=== PATIENT | female | born 1980 | race Caucasian/White ===

== ENCOUNTER 2024-07-27 17:15 | Emergency (ER) | payer OTHER, SELFPAY ==
--- NOTE | 2024-07-27 17:18 | ED.EYEPROB ---
HPI - Eye Problem General Chief complaint: Eye Problems Stated complaint: LT Eye Pain Time Seen by Provider: 07/27/24 17:30 Source: patient and RN notes reviewed Mode of arrival: ambulatory Limitations: no limitations History of Present Illness HPI Narrative: 44-year-old female presents with concern for left eye pain. Reports about 40 minutes prior to arrival she was cutting limbs in her yd when she got scratched in the left eye with a tree branch. She reports intermittent watery drainage and occasional blurry vision. MD chief complaint: eye pain Related Data Home Medications ?Medication ?Instructions ?Recorded ?Confirmed ?Last Taken ?Type atenolol 50 mg tablet 50 mg PO DAILY 01/22/20 Unknown History clonazepam 0.5 mg tablet 0.5 mg PO DAILY 01/22/20 Unknown History furosemide 40 mg tablet 40 mg PO QAM 01/22/20 Unknown History lamotrigine 300 mg tablet,extended 300 mg PO DAILY 01/22/20 Unknown History release 24 hr valsartan 40 mg tablet 40 mg PO BID 01/22/20 Unknown History divalproex 500 mg tablet,extended mg PO 07/27/24 Unknown History release 24 hr lamotrigine 100 mg tablet mg 07/27/24 Unknown History Allergies Allergy/AdvReac Type Severity Reaction Status Date / Time codeine AdvReac Intermediate Gastrointestinal Verified 07/27/24 17:18 Upset acetaminophen (From Percocet) AdvReac Mild Itching Verified 07/27/24 17:18 oxycodone (From Percocet) AdvReac Mild Itching Verified 07/27/24 17:18 Review of Systems Review of Systems: CONSTITUTIONAL: Denies malaise, chills, sweats, or fever. EYES: Reports left eye watery drainage, pain, occasional blurry vision ENT: Denies rhinorrhea, congestion, sinus pain, otalgia or sore throat. SKIN: Denies rash or itching. NEUROLOGIC: Denies numbness, weakness, or headache. PSYCHIATRIC: Denies anxiety or depression. All systems reviewed & are unremarkable except as noted in HPI and below PMFSH Social History Social History (Updated 01/22/20 @ 15:30 by Erin Izquierdo [facility]) Smoking status: Never smoker Second hand tobacco smoke exposure: No Alcohol intake: current Substance use: never Substance use type: does not use Comments At time of signature, agree with nursing past medical, surgical, social and family history. There is no relevant family history pertinent to the presenting complaint Exam Narrative: GENERAL: Well-appearing, well-nourished, and in no acute distress. HEAD: Normocephalic, atraumatic. EYES: PERRLA, sclera clear, and EOMI. No nystagmus. Upper and lower eyelid unremarkable, no periorbital edema noted. Small Subconjunctival hemorrhage noted to the inner left eye. Corneal abrasion noted upon Wood's lamp exam, see note ENT: Nares clear, turbinates pink, no rhinorrhea or epistaxis. Mucous membranes moist. TM pearly shaver with sharp light reflex bilaterally; no tragal tenderness. NECK: Supple. CHEST: No respiratory distress. Speaks in full sentences. HEART: Regular rate and rhythm. SKIN: Warm, dry, no visible rash. NEURO: Alert and oriented x3. PSYCH: Normal mood and affect Course Course Emergency Course: Patient is aware of diagnosis, understands and agrees to treatment plan. Anticipatory guidance given. Patient agrees to follow-up as directed and is aware of reasons to seek care at the emergency department. Portions of this record may have been created with voice recognition software Level of Care: Express Care Visit Vital Signs Vital signs: Reviewed. Procedures Other Procedure Procedure 1: Other Procedure: Tetracaine 1 gtt instilled in left eye, fluorescein stain applied. Corneal abrasion noted upon tinoco lamp exam at approximately 9 o'clock in relation to the pupil. Eye washed with NS 100 ml. No foreign bodies or Norm sign noted. MDM - Eye Problem MDM Narrative Medical decision making narrative: Consideration of the following conditions may be warranted for the presenting problem, they are not final diagnoses: Bacterial conjunctivitis, allergic conjunctivitis, viral conjunctivitis, foreign body, blepharitis, chalazion, hordeolum, corneal abrasion, preseptal cellulitis, orbital cellulitis. No evidence of proptosis, ophthalmoplegia, vision loss, pain with eye movement. Exam findings show no acute concerns or changes; patient is non-toxic appearing and is in no distress. Patient is appropriate for outpatient treatment and follow-up. Critical Care Time Critical Care Time Critical Care Time: No Discharge Plan Discharge Clinical Impression: Corneal abrasion, Subconjunctival hemorrhage Patient Disposition: Home Condition: Stable Instructions: Corneal Abrasion (ED) Additional Instructions: Corneal abrasions will heal in 1-2 days. Keep your eye shut and wear sunglasses or stay in low light to avoid light sensitivity. Do not touch or rub your eye or use a fabric patch You may take Tylenol or ibuprofen for pain Follow-up with PCP or director business development if condition is not improving in 2-3days. Patient Language: Croatian Prescriptions: New polymyxin B sulf-trimethoprim 10,000 unit- 1 mg/mL drops 1 drp LEFT EYE Q3H 7 Days Qty: 10 0RF Rx Instructions: while awake; do not exceed 6 doses in 24 hours No Action divalproex 500 mg tablet extended release 24 hr PO lamotrigine 100 mg tablet clonazepam 0.5 mg tablet 0.5 mg PO DAILY lamotrigine 300 mg tablet extended release 24hr 300 mg PO DAILY valsartan 40 mg tablet 40 mg PO BID furosemide 40 mg tablet 40 mg PO QAM atenolol 50 mg tablet 50 mg PO DAILY fluticasone propionate 50 mcg/actuation spray,suspension 1 spray intranasal BID Qty: 15.8 3RF Rx Instructions: administer into each nostril azelastine 137 mcg (0.1 %) aerosol,spray 1 spray intranasal Q12H Qty: 30 3RF Rx Instructions: administer into each nostril lidocaine HCl 2 % solution 1 applic mucous membrane BID Qty: 100 3RF omeprazole 40 mg capsule,delayed release(DR/EC) See Rx Instructions .ROUTE .COMPLEX Qty: 30 0RF Dose Instruction: TAKE 1 CAPSULE BY MOUTH DAILY Rx Instructions: TAKE 1 CAPSULE BY MOUTH DAILY Follow-up/Referrals: UNKNOWN,DOCTOR [Non-Staff] - Time of Disposition: 17:40
--- OUTSIDE RECORDS SUMMARY | 2024-07-27 17:18 | XMS_ITS | Clinical Summary ---
Author Organization [facility] Address [address] [place] [address] Phone Care Team Providers Care Labview Programmer Name Role Phone Unavailable Primary Care Provider Unavailabl e Allergies Active Allergy Reactions Criticality Noted Date Comments Codeine Nausea and Vomiting Low 06/23/2011 Labetalol Hives High 06/23/2011 Oxycodone-Acetaminophen Hives High 06/23/2011 Medications atenolol (TENORMIN) 50 mg Oral tablet Take 50 mg by mouth 2 times daily. Active ferrous sulfate SR (SLOW RELEASE IRON) 160 mg (50 mg iron) Oral TbSR Take 160 mg by mouth 2 times daily. Active vit-iron fumarate-fa (CHARISSE ) 28-0.8 mg Oral Tab Take 1 Tab by mouth daily. Active folic acid (FOLVITE) 1 mg Oral tablet Take 1 mg by mouth daily. Active docusate sodium (COLACE) 100 mg Oral capsule Take 1 Cap by mouth 2 times daily. 20 Cap 1 2 Active bisacodyl (DULCOLAX) 10 mg Rectal Supp Insert 1 Suppository by rectum 1 time daily as needed for Constipation. 12 Suppository 0 2 Active ibuprofen (MOTRIN) 600 mg Oral tablet Take 1 Tab by mouth every 6 hours as needed for Pain. 20 Tab 0 2 Active HYDROcodone-ac etaminophen (NORCO) 10-325 mg Oral Tab Take 1 Tab by mouth every 4 hours as needed for Pain, Moderate. 20 Tab 0 2 Active Active Problems Problem Noted Date Diagnosed Date 06/30, CHTN - atena lol 50 BID, lasix 40 QOD, diovan 160 mg 07/01/2011 CHTN, MVP,rt side pain at 37.6w 06/23/2011 Immunizations Immunization Administration Dates Next Due (ADACEL/BOOSTRIX)(10 YR UP) TDAP VACCINE, 0.5ML, IM 07/03/2011 Family History Medical History Relation Name Comments Hypertension Mother Relation Name Status Comments Father Alive Mother Alive Social History Tobacco Use Types Packs/Day Years Used Date Smoking Tobacco: Former Alcohol Use Standard Drinks/Week Comments No 0 (1 standard drink = 0.6 oz pur e alcohol) Comments Unknown Sex and Gender Information Value Date Recorded Sex Assigned at Not on file 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 Gender Identity Not on file Sexual Orientation Not on file Occupation Industry Job Start Date Job End Date Not on file Not on file Not on file Not on file Last Filed Vital Signs Vital Sign Reading Time Taken Comments Blood Pressure 120/80 07/03/2011 8:42 AM CDT Pulse 84 07/03/2011 8:42 AM CDT Temperature 36.8 C (98.2 F) 07/03/2011 8:42 AM CDT Respiratory Rate 18 07/03/2011 8:42 AM CDT Oxygen Saturation 98% 07/01/2011 10:30 AM CDT Inhaled Oxygen Concentration - - Weight 101.6 kg (224 lb) 07/01/2011 5:53 AM CDT Height 157.5 cm (5' 2) 07/01/2011 5:53 AM CDT Body Mass Index 40.97 07/01/2011 5:53 AM CDT Plan of Treatment Health Maintenance Due Date Last Done Comments HEPATITIS B VACCINES (1 of 3 - 19+ 3-dose series) 1997 HPV/Cotest (21-29) 07/20/1999 CERVICAL CANCER SCREENING 2008 HPV/Cotest (30-65) 2008 PAP SMEAR 2008 BREAST CANCER SCREENING 2018 DTAP/TDAP/TD VACCINES (2 - T d or Tdap) 07/02/2021 07/03/2011 COLORECTAL SCREENING 07/20/2023 Colorectal Cancer Screening 07/20/2023 FIT-DNA Q 3 years 07/20/2023 FIT/FOBT Q 1 year 07/20/2023 Flex Sig/CT Colonography Q 5 years 07/20/2023 INFLUENZA VACCINE (#1) 2023 HPV VACCINES Aged Out No longer eligi ble based on patient's age to complete this topic Insurance Advance Directives For more information, please contact: [phone] * Full Code (Latest Code Status on File) Date Activated Date Inactivated Comments 07/01/2011 11:05 AM 07/03/2011 3:44 PM * Full Code Date Activated Date Inactivated Comments 06/23/2011 8:07 PM 06/24/2011 1:20 AM
--- OUTSIDE RECORDS SUMMARY | 2024-07-27 17:18 | XMS_ITS | Clinical Summary ---
Author Organization [facility] Address [address] [place] [id number] Care Team Providers Care Fish Hatchery Inspector Name Role Phone Unavailable Primary Care Provider Unavailabl e Social History Tobacco Use Types Packs/Day Years Used Date Smoking Tobacco: Never Assessed Comments Unknown Sex and Gender Information Value Date Recorded Sex Assigned at Not on file Legal Sex Female 6:57 PM CDT Gender Identity Not on file Sexual Orientation Not on file Plan of Treatment Health Maintenance Due Date Last Done Comments Cervical Cancer Screening Pa p Smear (Age 30 to 64) Every 3 Years 1978 Colorectal Cancer Screening Colonoscopy (10 Years) 1978 Annual Physical 1981 Hepatitis C 1996 DTaP, Tdap and Td Vaccines ( 1 - Tdap) 1997 Hepatitis B Vaccines (1 of 3 - 19+ 3-dose series) 1997 Cervical Cancer Screening Pa p with HPV Testing (Age 30 to 64) Every 5 Years 2008 Cervical Cancer Screening with HPV 2008 Mammogram Screening 2018 COVID-19 Vaccine (2023-2 5 season) 2023 HPV Vaccines Aged Out No longer eligi ble based on patient's age to complete this topic Meningococcal B Vaccine Aged Out No l onger eligible based on patient's age to complete this topic Meningococcal Vaccine Aged Out No asa cornelius eligible based on patient's age to complete this topic Pneumococcal Vaccine: Pediat rics (0 to 5 Years) and At-Risk Patients (6 to 49 Years) Aged Out No longer eligible b ased on patient's age to complete this topic RSV Immunizations Under 20 Months Aged Out No longer eligible based on patient's age to complete this topic
--- OUTSIDE RECORDS SUMMARY | 2024-07-27 17:18 | XMS_ITS | Encounter Summary ---
Author Organization [facility] Address [address] [place] [address] Phone Care Team Providers Care Recreation Therapy Teacher Name Role Phone Murray Bradshaw MD Primary Care Provider [phone] Encounter Details Date Type Department Care Team (Late st Contact Info) Description 06/09/2024 Results Follow-Up [facility] [address] [place] [address] Murray Bradshaw MD [address] [place] [address] [address] [place], [place] [id number] Urinalysis reflex to microscopic and culture Urine, Lipid panel, Comprehensive metabolic panel, Additional followed-up results: 4 Social History Tobacco Use Types Packs/Day Years Used Date Smoking Tobacco: Never Smokeless Tobacco: Never Alcohol Use Standard Drinks/Week Comments Yes 0 (1 standard drink = 0.6 oz pur e alcohol) AUDIT-C Answer Date Recorded Q1: How often do you have a drink containing alc ohol? 2-4 times a month 06/08/2020 Q2: How many drinks containi ng alcohol do you have on a typical day when you are drinking? 1 or 2 06/08/2020 Q3: How often do you have si x or more drinks on one occasion? Less than monthly 06/08/2020 Personal Safety Answer Date Recorded Have you ever been in or are you currently in a harmful physical or emotional relationship or is someone making you feel afraid or unsafe? 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
--- OUTSIDE RECORDS SUMMARY | 2024-07-27 17:18 | XMS_ITS | Clinical Summary ---
Author Organization [facility] Address [address] [place] [address] Care Team Providers Care Bullet Maker Name Role Phone Murray Bradshaw MD Primary Care Provider [phone] Allergies Active Allergy Reactions Criticality Noted Date Comments Carbamazepine Itching,Swelling Medium 03/02/2016 Codeine Nausea & Vomiting Low 11/16/2011 Labetalol Rash,Urticaria,Hives Medium 01/18/2011 Lacosamide Other (See comments) Low 12/03/2017 MADE HER PASS OUT, STATES MADE HER OFF BALANCE AND VERY ILL Oxycodone-Acetaminophen Itching Medium 06/23/2011 Medications * This document contains information received from the source organization and may not represent a complete record from that organization. clonazePAM (KlonoPIN) 1 mg tabletIndications :seizures Take 0.5 mg by mouth nightly 016 Active lamoTRIgine XR (LaMICtal XR) 200 mg tablet extended release 24hr Take 0.5 tablets (100 mg total) by mouth daily 15 tablet Active Additional Information Patient taking differently: 200 mgoralNightly, 100mg in am and 200mg in pm, Indications: epilepsy, Informant: Self, Reported on 06/01/2020 meclizine (ANTIVERT) 25 mg tablet Take 1 tablet (25 mg total) by mouth every 6 (six) hours as needed for dizziness 20 tablet Active Nurtec ODT tablet,disintegra tingIndications:M igraine Place under the tongue as needed Active divalproex DR (DEPAKOTE) 500 mg EC tabletIndications :epilepsy Take 500 mg by mouth every morning Active lamoTRIgine XR (LaMICtal XR) 100 mg tablet extended release 24hrIndications:e pilepsy Take 100 mg by mouth every morning Active ondansetron ODT (ZOFRAN-ODT) 8 mg disintegrating tabletIndications :post-op 021 Active omeprazole (PriLOSEC) 40 mg capsuleIndication s:Stress Ulcer Prophylaxis Take 1 capsule (40 mg total) by mouth nightly 90 capsule 3 024 Active escitalopram (LEXAPRO) 10 mg tablet Take 1 tablet (10 mg total) by mouth daily 90 tablet 4 024 Active rimegepant (Nurtec ODT) tablet,disintegra ting Take 1 tablet (75 mg total) by mouth daily 24 tablet 024 Active valsartan (DIOVAN) 80 mg tabletIndications :Hypertension, essential TAKE 1 TABLET(80 MG) BY MOUTH DAILY 90 tablet 3 024 Active furosemide (LASIX) 40 mg tabletIndications :Essential hypertension Take 1 tablet (40 mg total) by mouth daily 90 tablet 1 025 Active ubrogepant (Ubrelvy) 100 mg tablet Take 1 tablet (100 mg total) by mouth once as needed for migraine May repeat dose once in 2 hours if no relief. Do not exceed 2 doses in 24 hours. 4 tablet 025 2025 Active Ubrelvy 50 mg tablet TAKE 1 TABLET BY MOUTH ONCE DAILY NEEDED FOR MIGRAINE 8 tablet 025 Active Wegovy 2.4 mg/0.75 mL auto-injector INJECT 2.4 MG SUBCUTANEOUSLY ONCE EVERY 7 DAYS. 4 mL 025 Active atenoloL (TENORMIN) 50 mg tabletIndications :Essential hypertension Take 1 tablet by mouth twice daily 180 tablet 1 025 Active atenoloL (TENORMIN) 50 mg tabletIndications :Essential hypertension TAKE 1 TABLET(50 MG) BY MOUTH TWICE DAILY 180 tablet 3 024 2024 Discontinued Wegovy 2.4 mg/0.75 mL auto-injector INJECT 2.4MG SUBCUTANEOUSLY ONCE EVERY 7 DAYS 4 mL 025 2024 Discontinued Active Problems Problem Noted Date Diagnosed Date Overweight (BMI 25.0-29.9) 05/24/2023 Paresthesias 05/04/2020 S/P JER (total abdominal hysterectomy) 8 Overview (06/14/2018): Had bilateral salpingectomy. 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 Rash 07/21/2013 Anemia 07/18/2011 Thyroid activity decreased 07/18/2011 Chronic diarrhea of unknown origin 07/18/2011 Urinary tract infection 07/18/2011 S/P section 07/01/2011 Elevated BP 06/23/2011 History of gastroesophageal reflux (GERD) 2010 History of partial seizures 12/14/2010 Overview (10/22/2017): Overview: Not sure, off medications for over one year MVP (mitral valve prolapse) 12/14/2010 Other pre-existing hypertension, antepartum 03/2010 Hypertension 05/04/2010 Epilepsy 05/04/2010 Encounters Date Type Department Care Team Description 06/09/2024 Results Follow-Up [address] [phone] Murray Bradshaw MD Urinalysis reflex to microscopic and culture Urine, Lipid panel, Comprehensive metabolic panel, Additional followed-up results: 4 06/09/[address] [phone] Jazmin Pritchett information strategist Results 06/05/[address] [phone] Murray Bradshaw MD Lab Results 05/12/2024 8:50 AM CDT Lab [facility] Medical Office Bld[address] [place] [id number] Routine general medical examination at a health care facility; Screening cholesterol level 05/09/[address] [phone] Murray Bradshaw MD Medication Clarification (ubelvy 100mg) 05/09/2024 Orders Only [address] [phone] ProviderMontse MD 05/08/2024 3:15 PM CDT Office Visit [address] [phone] Murray Bradshaw MD Routine general medical examination at a health care facility (Primary Dx); Screening cholesterol level from Last 3 Months Immunizations Immunization Administration Dates Next Due Influenza, Trivalent, Cell C ulture-based MDCK, Preservative Free, Antibiotic Free, Intramuscular 11/29/2023 Influenza, Unspecified 12/06/2019 Surgical History Surgery Date Site/Laterality Comments [place] TONSILLECTOMY PRIMARY/SECONDARY AGE 12/> 02/13/2000 - 02/11/2001 Tonsillectomy Over Age 12 - (Added by TW Conv) [place] DELIVERY ONLY 2006, 2011 Section - (Added by TW Conv) ANKLE SURGERY 02/13/2012 - 02/11/2013 Right Ankle Surgery - (Added by TW Conv) PARTIAL HYSTERECTOMY 02/12/2017 - 02/11/2018 DILATION AND CURETTAGE OF UTERUS 2006, 2011 Medical History Medical History Date Comments Hypertension Hypertension Hx Other Medical 2000 tonsillectomy Hx Other Medical 2006 Hx Other Medical 2 ankle surg Hx Other Medical D&C Personal history of other di seases of the circulatory system History of hypertension - (A dded by TW Conv) PONV (postoperative nausea and vomiting) pre medicated with no issues Seizure (HCC) last episode cecily emiliana 6 mos ago TIA (transient ischemic attack) with visual changes, at the time, reports, no residual effects Family History Medical History Relation Name Comments Prostate cancer Father Family histo ry of malignant neoplasm of prostate - (Added by TW Conv) Diabetes type II Mother Diabetes -T ype 2; Hypertension Mother Hypertension; / Family history of hypertension - (Added by TW Conv) Diabetes Other 1 Family history of Diabetes mellitus; Cancer Other 2 Family history of Cancer; Relation Name Status Comments Father Mother Other 1 Other 2 Social History Tobacco Use Types Packs/Day Years Used Date Smoking Tobacco: Never Smokeless Tobacco: Never Tobacco Cessation:Counseling Given: No Alcohol Use Standard Drinks/Week Comments Yes 0 [...] on file Legal Sex Female 11:32 PM [employer]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 Gender Identity Not on file Sexual Orientation Not on file Obstetrics History Last Filed Vital Signs Vital Sign Reading Time Taken Comments Blood Pressure 118/76 05/08/2024 3:25 PM CDT Pulse 84 05/08/2024 3:25 PM CDT Temperature 36.7 C (98.1 F) 05/08/2024 3:25 PM CDT Respiratory Rate 16 04/16/2023 4:08 PM 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 Oxygen Saturation 99% 05/08/2024 3:25 PM CDT Inhaled Oxygen Concentration - - Weight 51.1 kg (112 lb 11.2 oz) 05/08/2024 3:25 PM CDT Height 157.5 cm (5' 2) 05/08/2024 3:25 PM CDT Body Mass Index 20.61 05/08/2024 3:25 PM CDT Plan of Treatment Health Maintenance Due Date Last Done Comments Colon Cancer Screening-Colonoscopy 1978 Depression Screening 1978 Hepatitis C Screening 1978 Hepatitis B Screening 1996 DTaP/Tdap/Td Vaccine (2 - Td or Tdap) 07/02/2021 07/03/2011 Covid-19 Vaccine ( season) 2023 07/31/2020, 07/03/2020 Breast Cancer Screening-Mammogram 11/08/2024 11/09/2023, 07/31/2022, 07/31/2022, Additional history exists Regular Well Visit/Exam 18-64 05/08/2025 05/08/2024, 03/20/2023, 02/15/2022 Influenza Vaccine Completed 11/29/2023, , 12/06/2017 HPV Vaccines Aged Out No longer eligi ble based on patient's age to complete this topic Pneumococcal vaccine <65 Aged Out No longer eligible based on patient's age to complete this topic Procedures Procedure Name Priority Date/Time Associated Diagnosis Comments EGFR Routine 05/12/2024 9:05 AM CDT Routine general medical examination at a health care facility Screening cholesterol level DIFFERENTIAL AUTO Routine 05/12/2024 9:0 5 AM CDT Routine general medical examination at a health care facility Screening cholesterol level VITAMIN D 25 HYDROXY Routine 05/12/2024 9:05 AM CDT Routine general medical examination at a health care facility Screening cholesterol level CBC WITH AUTO DIFFERENTIAL Routine 05/12/2024 9:05 AM CDT Routine general medical examination at a health care facility Screening cholesterol level COMPREHENSIVE METABOLIC PANEL Routine 05/12/2024 9:05 AM CDT Routine general medical examination at a health care facility Screening cholesterol level LIPID PANEL Routine 05/12/2024 9:05 AM CDT Routine general medical examination at a health care facility Screening cholesterol level URINALYSIS AND REFLEX TO MICROSCOPIC AND CULTURE Routine 05/12/2024 9:05 AM CDT Routine general medical examination at a health care facility Screening cholesterol level ECG 12-LEAD Routine 05/09/2024 3:02 PM CDT DIAGNOSTIC MAMMOGRAM BILATERAL W TAMARA Schedule Routine, Read Routine (OP Routine) 11/09/2023 4:12 PM CDT Abnormal mammogram of left breast Screening mammogram for breast cancer from Last 3 Months or Most Recently Relevant to Health Maintenance Results * eGFR (05/12/2024 9:05 AM CDT) Pathologist [facility] eGFR 89 >=60 mL/min/1. 73 m2 Comment: Interpretive Data Reference Interval Normal >/= 90 mL/min/1.73m2 Mildly decreased* 60 - 89 mL/min/1.73m2 Mildly to moderately decreased 45 - 59 mL/min/1.73m2 Moderately to severely decreased 30 - 44 mL/min/1.73m2 Severely decreased 15 - 29 mL/min/1.73m2 Kidney Failure < 15 mL/min/1.73m2 *Relative to young adult level Estimated glomerular filtration rate is determined by the 2020 CKD-EPI equation recommended by the National Kidney Foundation (A Unifying Approach to GFR Estimation: Recommendations of the NKF-ASK Task Force on Reassessing the Inclusion of Race in Diagnosing Kidney Disease, JASN 2020). The CKD-EPI equation should not be used for patients with unstable renal function and has not been validated in children and those over 70. Current interpretive data was last reviewed 2020. Blood 05/12/2024 9:0 5 AM CDT 05/12/2024 12:46 PM CDT Murray Bradshaw MD LAB BLOOD ORDERABLES Final R esult [facility] [address] [facility] Department [place] [address] * Differential, auto (05/12/2024 9:05 AM CDT) Pathologist [facility] Neutrophil abs 2.7 1.5 - 6.5 K/cumm Imm gran abs 0.0 0.0 - 0.1 K/cumm [facility] Lymphocyte abs 2.5 0.8 - 3.3 K/cumm [facility] Monocyte abs 0.6 0.2 - 0.8 K/cumm [facility] Eosinophil abs 0.3 0.0 - 0.5 K/cumm [facility] Basophil abs 0.0 0.0 - 0.1 K/cumm [facility] Neutrophil pct 44.2 % [facility] Comment: Interpretive Data Percent cell count reference ranges are not reported, since discordance with absolute values may lead to misinterpretation of CBC data. Current Interpretive Data was last revised on 2017. Imm gran pct 0.2 % [facility] Comment: Interpretive Data Percent cell count reference ranges are not reported, since discordance with absolute values may lead to misinterpretation of CBC data. Current Interpretive Data was last revised on 2017. Lymphocyte pct 40.8 % [facility] Comment: Interpretive Data Percent cell count reference ranges are not reported, since discordance with absolute values may lead to misinterpretation of CBC data. Current Interpretive Data was last revised on 2017. Monocyte pct 9.5 % [facility] Comment: Interpretive Data Percent cell count reference ranges are not reported, since discordance with absolute values may lead to misinterpretation of CBC data. Current Interpretive Data was last revised on 2017. Eosinophil pct 4.6 % [facility] Comment: Interpretive Data Percent cell count reference ranges are not reported, since discordance with absolute values may lead to misinterpretation of CBC data. Current Interpretive Data was last revised on 2017. Basophil pct 0.7 % [facility] Comment: Interpretive Data Percent cell count reference ranges are not reported, since discordance with absolute values may lead to misinterpretation of CBC data. Current Interpretive Data was last revised on 2017. Blood 05/12/2024 9:05 AM CDT 05/12/2024 12:46 PM CDT Murray Bradshaw MD LAB BLOOD ORDERABLES Final R esult [facility] [address] [facility] Department [place] [address] * Urinalysis reflex to microscopic and culture Urine (05/12/2024 9:05 AM CDT) Color, ur Yellow Yellow Clarity, ur Clear Clear [facility] Specific gravity, ur 1.013 1.003 - 1.030 [facility] pH, urine 6.0 [facility] Comment: Interpretive Data U rine pH is affected by diet, medications, systemic acid-base disturbances, and renal tubular function. pH may affect urinary stone formation. For example, urine pH below 6.0 may help reduce the tendency for calcium phosphate stones and pH greater than 6.0 may reduce the tendency for uric acid stone formation. Source: [facility] Current Interpretive Data was last revised on 2017 Protein, ur ql Negative Negative [facility] Glucose, ur ql Negative Negative [facility] Ketones, ur Negative Negative [facility] Bilirubin, ur Negative Negative [facility] Blood, ur Negative Negative [facility] Urobilinogen, ur <2.0 <2.0 mg/dL [facility] Nitrite, ur Negative Negative [facility] Leukocyte esterase, ur Negative Negative [facility] UA reflex comment Reflex conditions for microscopic UA and culture not met. [facility] Urine 05/12/2024 9:05 AM CDT 05/12/2024 12:50 PM CDT us Murray Bradshaw MD LAB MICROBIOLOGY - GENERAL O RDERABLES Final Result [address] Department [place] [address] * (ABNORMAL) CBC with auto differential (05/12/2024 9:05 AM CDT) WBC 6.0 3.8 - 9.9 K/cumm Hgb 11.2(L) 11.9 - 15.5 g/dL [facility] Hct 35.0(L) 35.6 - 45.5 % [facility] Plt 224 150 - 400 K/cumm [facility] MPV 10.8 9.1 - 12.3 fL [facility] RBC 3.68(L) 3.90 - 5.20 M/cumm [facility] MCV 95.1 81.3 - 96.4 fL [facility] MCH 30.4 27.1 - 33.3 pg [facility] MCHC 32.0(L) 32.3 - 35.7 g/dL [facility] RDW CV 12.3 11.1 - 14.9 % [facility] RDW SD 43.6 35.7 - 48.1 fL [facility] NRBC abs 0.00 0.00 - 0.01 K/cumm [facility] Blood 05/12/2024 9:05 AM CDT 05/12/2024 12:46 PM CDT Murray Bradshaw MD LAB BLOOD ORDERABLES Final R esult Performing Organization Address [facility] Co de Phone Number [address] [place] [address] * Vitamin D 25 hydroxy (05/12/2024 9:05 AM CDT) Vitamin D 25-OH 34.0 30.0 - 80.0 ng/mL Blood 05/12/2024 9:05 AM CDT 05/12/2024 12:46 PM CDT Murray Bradshaw MD LAB BLOOD ORDERABLES Final R esult Performing Organization Address [facility] Co de Phone Number [address] [place] [address] * Lipid panel (05/12/2024 9:05 AM CDT) Cholesterol 156 30 - 199 mg/dL Comment: Interpretive Data Ages < or = 19 years Acceptable: <170 mg/dL Borderline high: 170-199 mg/dL High: >or= 200 mg/dL Ages > or = 20 years Desirable: <200 mg/dL Borderline high: 200-239 mg/dL High: >or= 240 mg/dL Literature References: 1. Expert Panel on Integrated Guidelines for Cardiovascular Health and Risk Reduction in Children and Adolescents. Pediatrics 2011;128:S213 2. NCEP Expert Panel. Circulation 2004;110:227 Current Interpretive Data was last revised on 2017. Triglycerides 72 <=149 mg/dL [facility] Comment: Interpretive Data Ages < or = 9 years Acceptable: <75 mg/dL Borderline high: 75-99 mg/dL High: >or= 100 mg/dL Ages 10 to 20 years Acceptable: <90 mg/dL Borderline high: 90-129 mg/dL High: >or= 130 mg/dL Ages > or = 20 years Desirable: <150 mg/dL Borderline high: 150-199 mg/dL High: 200-499 mg/dL Very high: >or= 499 mg/dL Literature References: 1. Expert Panel on Integrated Guidelines for Cardiovascular Health and Risk Reduction in Children and Adolescents. Pediatrics 2011;128:S213 2. NCEP Expert Panel. Circulation 2004;110:227 Current Interpretive Data was last revised on 2017. HDL 51 >=40 mg/dL [facility] Comment: Interpretive Data Ages < or = 19 years Acceptable: >45 mg/dL Borderline low: 40-45 mg/dL Low: <40 mg/dL Ages > or = 20 years Desirable: >or= 60 mg/dL Low: <40 mg/dL Literature References: 1. Expert Panel on Integrated Guidelines for Cardiovascular Health and Risk Reduction in Children and Adolescents. Pediatrics 2011;128:S213 2. NCEP Expert Panel. Circulation 2004;110:227 Current Interpretive Data was last revised on 2017. LDL, calculated 91 <=129 mg/dL [facility] Comment: Interpretive Data Ages < or = 19 years Acceptable: <110 mg/dL Borderline high: 110-129 mg/dL High: >or= 130 mg/dL Ages > or = 20 years Optimal: <100 mg/dL Near optimal: 100-129 mg/dL Borderline high: 130-159 mg/dL High: >160 mg/dL Calculated using the Erick LDL-C estimating equation. This equation was implemented on 2023. Prior to this date LDL-C was estimated using the Friedewald equation. Literature References: 1. Expert Panel on Integrated Guidelines for Cardiovascular Health and Risk Reduction in Children and Adolescents. Pediatrics 2011;128:S213 2. NCEP Expert Panel. Circulation 2004;110:227 3. Erick Encarnacion al. LUCY Cardiol. 2020 June 12;5(5):540-548. doi: 10.1001/jamacardio.2020.0013 Current Interpretive Data was last revised on 2023. Non-HDL Cholesterol 105 mg/dL [facility] Comment: Interpretive Data Ages < or = 19 years Acceptable: <120 mg/dL Borderline high: 120-144 mg/dL High: >145 mg/dL Ages > or = 20 years When triglycerides are >200 mg/dL, Non-HDL cholesterol is a secondary target of therapy with treatment goals that are 30 mg/dL greater than the LDL cholesterol target. Literature References: 1. Expert Panel on Integrated Guidelines for Cardiovascular Health and Risk Reduction in Children and Adolescents. Pediatrics 2011;128:S213 2. NCEP Expert Panel. Circulation 2004;110:227 Current Interpretive Data was last revised on 2017. Chol/HDL ratio 3 [facility] Blood 05/12/2024 9:05 AM CDT 05/12/2024 12:46 PM CDT Murray Bradshaw MD LAB BLOOD ORDERABLES Final R esult [facility] [address] [facility] Department [place] [address] * (ABNORMAL) Comprehensive metabolic panel (05/12/2024 9:05 AM CDT) Sodium 136 135 - 145 mmol/L Potassium, pl 4.2 3.3 - 4.9 mmol/L [facility] Chloride 100 97 - 110 mmol/L [facility] CO2 24 22 - 32 mmol/L [facility] Anion gap 12 2 - 15 mmol/L [facility] BUN 15 6 - 25 mg/dL [facility] Creatinine 0.83 0.60 - 1.10 mg/dL [facility] Glucose 90 70 - 199 mg/dL [facility] Comment: Interpretive Data Fasting glucose >/= 126 mg/dl is diagnostic for diabetes. Fasting is defined as no caloric intake for at least 8 hours. Fasting glucose between 100 mg/dl to 125 mg/dl is diagnostic of prediabetes. In a patient with classic symptoms of hyperglycemia or hyperglycemic crisis, a random glucose >/= 200 mg/dl is diagnostic for diabetes. In the absence of unequivocal hyperglycemia, results should be confirmed by repeat testing. The classification and Diagnosis of Diabetes Diabetes Care 2021; 46: S19-S40. Current interpretive data was last revised 2022. Calcium 9.2 8.5 - 10.3 mg/dL [facility] Bilirubin, total 0.2 0.1 - 1.2 mg/dL [facility] Protein, pl 6.8 6.5 - 8.5 g/dL [facility] Albumin 4.2 3.5 - 5.0 g/dL [facility] Alk phos 62 40 - 130 Units/L [facility] ALT 89(H) 7 - 45 Units/L [facility] AST 49(H) 10 - 45 Units/L [facility] Blood 05/12/2024 9:05 AM CDT 05/12/2024 12:46 PM CDT Murray Bradshaw MD LAB BLOOD ORDERABLES Final R esult [facility] [address] [facility] Department [place] [address] * ECG 12 lead (05/09/2024 3:02 PM CDT) Historical Provider ECG ORDERABLES Final Res ult * Diagnostic Mammogram Bilateral W Tamara (11/09/2023 4:12 PM CDT) Anatomical Region Laterality Modality Breast Bilateral Mammography 11/09/2023 4:28 PM CDT Impressions 11/09/2023 4:43 PM CDT 1. No mammographic evidence of malignancy in either breast. 2. The previous left breast asymmetry does not persist on today's exam, and is now considered benign. OVERALL FINAL ASSESSMENT: BI-RADS Category 1: Negative. RECOMMENDATION: Annual screening mammography is recommended. Dictated by: Samuel Olvera D.O. The radiology attending physician has personally reviewed this study, and had reviewed and/or edited this written report and agrees with it. Electronically signed by: Tram Kuhn M.D. Narrative 11/09/2023 4:43 PM CDT EXAMINATION: BILATERAL DIGITAL DIAGNOSTIC MAMMOGRAM INCLUDING CAD AND BILATERAL DIGITAL BREAST TOMOSYNTHESIS HISTORY: 43-year-old female presents for short interval follow-up mammogram of an asymmetry in the left breast. Initially the patient presented for breast pain in the left breast 6 months ago which she describes as intermittent and does not feel pain today. COMPARISON: Multiple prior studies, most recently 04/10/2023 and dating back to 09/26/2019. TECHNIQUE: Full field digital mammographic views of BOTH breasts were performed, including computer aided detection (CAD) and BILATERAL digital breast tomosynthesis (DBT). BREAST PARENCHYMAL COMPOSITION: There are scattered areas of fibroglandular density. MAMMOGRAM FINDINGS: Left: The previously described asymmetry in the central mid depth LEFT breast does not persist on today's evaluation and represents superimposed fibroglandular tissue. There is no new suspicious mass, calcification, or architectural distortion in the LEFT breast. Right: No suspicious mass, calcification or architectural distortion in the right breast. Procedure Note Tram Kuhn MD - 11/09/2023 EXAMINATION: BILATERAL DIGITAL DIAGNOSTIC MAMMOGRAM INCLUDING CAD AND BILATERAL DIGITAL BREAST TOMOSYNTHESIS HISTORY: 43-year-old female presents for short interval follow-up mammogram of an asymmetry in the left breast. Initially the patient presented for breast pain in the left breast 6 months ago which she describes as intermittent and does not feel pain today. COMPARISON: Multiple prior studies, most recently 04/10/2023 and dating back to 09/26/2019. TECHNIQUE: Full field digital mammographic views of BOTH breasts were performed, including computer aided detection (CAD) and BILATERAL digital breast tomosynthesis (DBT). BREAST PARENCHYMAL COMPOSITION: There are scattered areas of fibroglandular density. MAMMOGRAM FINDINGS: Left: The previously described asymmetry in the central mid depth LEFT breast does not persist on today's evaluation and represents superimposed fibroglandular tissue. There is no new suspicious mass, calcification, or architectural distortion in the LEFT breast. Right: No suspicious mass, calcification or architectural distortion in the right breast. IMPRESSION: 1. No mammographic evidence of malignancy in either breast. 2. The previous left breast asymmetry does not persist on today's exam, and is now considered benign. OVERALL FINAL ASSESSMENT: BI-RADS Category 1: Negative. RECOMMENDATION: Annual screening mammography is recommended. Dictated by: Samuel Olvera D.O. The radiology attending physician has personally reviewed this study, and had reviewed and/or edited this written report and agrees with it. Electronically signed by: Tram Kuhn M.D. Murray Bradshaw MD IMG MAMMO PROCEDURES Final R esult from Last 3 Months or Most Recently Relevant to Health Maintenance Insurance [facility] [employer] [employer]O Address: [place] [address] [facility] [employer]O Address: [place] [address] [facility] [employer] [employer]PPO Address: [address] [address] [place] [address] [facility] [facility] [employer]PPO Address: [facility] [address] [place] [address] Advance Directives For more information, please contact: [phone] * Full Code (Latest Code Status on File) Date Activated Date Inactivated Comments 05/05/2020 1:20 AM 05/06/2020 8:46 PM Care Teams Bullet Maker Relationship Specialty Start Date End Date Murray Bradshaw MD [facility] [address] [address] PCP - General 07/06/10
--- OUTSIDE RECORDS SUMMARY | 2024-07-27 17:18 | XMS_ITS | Encounter Summary ---
Author Organization [facility] Healthcare Address [address] [place] [address] Care Team Providers Care Repair Table Operator Name Role Phone Murray Bradshaw MD Primary Care Provider [phone] Encounter Details Date Type Department Care Team (Late st Contact Info) Description 04/12/2020 Telephone [facility] [address] [place] [address] Elise Lambert, RT Social History Tobacco Use Types Packs/Day Years Used Date Smoking Tobacco: Never Alcohol Use Standard Drinks/Week Comments Yes 0 (1 standard drink = 0.6 oz pur e alcohol) Comments No Sex and Gender Information Value Date Recorded Sex Assigned at Not on file Legal Sex Female 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 07/08/2021 07/08/2021 11/05/2021 3:05 AM C DT COVID: Suspected 12/29/2022 12/29/2022 12/29/2022 4:26 PM COMMERCIAL ARTIST LETTERING COVID: Suspected 04/12/2023 04/12/2023 04/12/2023 3:08 PM COMMERCIAL ARTIST LETTERING documented as of this encounter Care Teams Repair Table Operator Relationship Specialty Start Date End Date Murray Bradshaw MD [address] [facility] [address] Dejah BALDWIN [address] [place] [address] PCP - General 07/06/10 documented as of this encounter
--- OUTSIDE RECORDS SUMMARY | 2024-07-27 17:18 | XMS_ITS | Continuity of Care Document ---
Author Organization [facility] Address [address] [place] [address] [place] [address] Phone Care Team Providers Care Scoop Driver Name Role Phone Samuel OD, Keyshawn Unavailable Unavailable Procedures Procedure Date Eye Exam & Treatment Refraction Contact Lens Hydrophilic, Spherical [facility] Medical Eye Exam & Treatment Refraction CL Replacement - Vistakon Disp W/BW Soft [facility] Medical CL Replacement - Vistakon Disp W/BW Soft [facility] Eye Exam & Treatment Advance Directives Directive Yes / No Effective Date File Name No Information Encounters Encounter Description Practice Location Reason(s) For Visit Diagnoses Date Provider Providers Copied on Encounter [facility], [address] [place] [address] [address], [place], [place], [id number], [place] tel:[phone] [facility] No Information Oct- 1-201 0 Samuel OD Keyshawn. [address] [facility] [place] , [address], [place], [address], [place]. tel:[phone] [facility], [address] [place] [address] [address], [place], [place], [id number], [place] tel:[phone] SEC [facility] No Information 5-200 9 Samuel OD Keyshawn. [address] [facility] [address], [address], [place], [address], [place]. tel:[phone] [facility], [address] [place] [address] [address], [place], [place], [id number], tel:[phone] [facility] No Information 1-200 9 Samuel OD Keyshawn. [address] [place], [place] [address]ate Center , [address], [place], [place], [facility], . tel:[phone] [facility] Eye [facility], [address] [place] [address] [address], [place], [place], [address], tel:[phone] SEC [facility] No Information 7-200 9 Samuel OD Keyshawn. [facility], [address] [facility] , [address], [place], [place], [facility], [place]. tel:[phone] [facility] Eye [facility], [address] [place] [address] [address], [place], [place], [address], tel:[phone] [facility] [place] No Information 1-200 8 Samuel OD Keyshawn. [address] [place], [place] [address]ate Center , [address], [place], [place], [facility], . tel:[phone] [facility] Eye [facility], [address] [place] [address] [address], [place], [place], [address], tel:[phone] [facility] [place] No Information 0 8-200 8 Samuel OD Keyshawn. [address] [place], [place] [address]ate Center , [address], [place], [facility], . tel:[phone] Family History Family Member Type Diagnosis Age At Onset No Information Payers Payer name Insurance type Covered alliance party ID Authoriza tion(s) No Information Social History Type Description Quantity Date Captured Comments Sex Female Smoking Status No Information Chief Complaint And Reason For Visit No Information Reason For Referral Reason For Referral No Information History Of Present Illness Encounter Date Complaint History Of Prese nt Illness No Information Functional Status Date Functional Assessmen t No Information Instructions Date Instruction Additional Infor mation No Information Assessments Type Assessment Date No Information Patient Care Teams Name Effective Dates (start - stop) Status Members No Information
--- OUTSIDE RECORDS SUMMARY | 2024-07-27 17:18 | XMS_ITS | Referral Summary ---
Author Organization [facility] Address [address] [place] [address] Care Team Providers Care Freight Caller Name Role Phone Murray Bradshaw MD Primary Care Provider [phone] Encounters Date Type Department Care Team Description 06/09/2024 Results Follow-Up [address] [phone] Murray Bradshaw MD Urinalysis reflex to microscopic and culture Urine, Lipid panel, Comprehensive metabolic panel, Additional followed-up results: 4 06/09/[address] [phone] Jazmin Pritchett RN Lab Results 06/05/[address] [phone] Murray Bradshaw MD Lab Results 05/12/2024 8:50 AM CDT Lab [facility] Bld[facility] [address] OP Lab [address] [address] Routine general medical examination at a health care facility; Screening cholesterol level 05/09/[address] [phone] Murray Bradshaw MD Medication Clarification (ubelvy 100mg) 05/09/2024 Orders Only [address] [phone] ProviderMontse MD 05/08/2024 3:15 PM CDT Office Visit [address] [place] [address] Murray Bradshaw MD Routine general medical examination at a health care facility (Primary Dx); Screening cholesterol level from Last 3 Months Allergies Active Allergy Reactions Criticality Noted Date [...] mg total) by mouth daily 15 tablet 021 Active Additional Information Patient taking differently: 200 mgoralNightly, 100mg in am and 200mg in pm, Indications: epilepsy, Informant: Self, Reported on 06/01/2020 meclizine (ANTIVERT) 25 mg tablet Take 1 tablet (25 mg total) by mouth every 6 (six) hours as needed for dizziness 20 tablet 021 Active Nurtec ODT tablet,disintegra tingIndications:M igraine Place under the tongue as needed [address] (DEPAKOTE) 500 mg EC tabletIndications :epilepsy Take 500 mg by mouth every morning Active lamoTRIgine XR (LaMICtal XR) 100 mg tablet extended release 24hrIndications:e pilepsy Take 100 mg by mouth every morning 021 Active ondansetron ODT (ZOFRAN-ODT) 8 mg disintegrating [...] hypertension, antepartum 03/2010 Hypertension 05/04/2010 Epilepsy 05/04/2010 Immunizations Immunization Administration Dates Next Due Influenza, Trivalent, Cell C ulture-based MDCK, Preservative Free, Antibiotic Free, Intramuscular 11/29/2023 Influenza, Unspecified 12/06/2019 Social History Tobacco Use Types Packs/Day Years [...] on file 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 Gender Identity Not on file Sexual Orientation Not on file Last Filed Vital Signs Vital Sign Reading Time Taken Comments Blood Pressure 118/76 05/08/2024 3:25 PM CDT Pulse 84 05/08/2024 3:25 PM CDT Temperature 36.7 C (98.1 F) 05/08/2024 3:25 PM CDT Respiratory Rate 16 04/16/2023 4:08 PM DENSITOMETER READER Oxygen Saturation 99% 05/08/2024 3:25 PM CDT Inhaled Oxygen Concentration - - Weight 51.1 kg (112 lb 11.2 oz) 05/08/2024 3:25 PM CDT Height 157.5 cm (5' 2) 05/08/2024 3:25 PM CDT Body Mass Index 20.61 05/08/2024 3:25 PM CDT Plan of Treatment Not on file Procedures Procedure Name Priority Date/Time Associated Diagnosis [...] 3:02 PM CDT DIAGNOSTIC MAMMOGRAM BILATERAL W GRAY Schedule Routine, Read Routine (OP Routine) 11/09/2023 4:12 PM CDT Abnormal mammogram of left breast Screening mammogram for breast cancer from Last 3 Months or Most Recently Relevant to Health Maintenance Results * eGFR (05/12/2024 9:05 AM CDT) [facility] eGFR 89 >=60 mL/min/1. 73 [...] data was last reviewed 2020. Blood 05/12/2024 9:05 AM CDT 05/12/2024 12:46 PM CDT us Murray Bradshaw MD LAB BLOOD ORDERABLES Final R esult [facility] [address] [facility] Department [place] [address] * Differential, auto (05/12/2024 9:05 AM CDT) [facility] Neutrophil abs 2.7 1.5 - 6.5 K/cumm Imm gran abs 0.0 0.0 - 0.1 K/cumm [facility] Lymphocyte abs 2.5 0.8 - 3.3 K/cumm [facility] Monocyte abs 0.6 0.2 - 0.8 K/cumm [facility] Eosinophil abs 0.3 0.0 - 0.5 K/cumm [facility] Basophil abs 0.0 0.0 - 0.1 K/cumm [facility] Neutrophil pct 44.2 % [facility] Comment: Interpretive Data Percent cell count reference ranges are not reported, since discordance with absolute values may lead to misinterpretation of CBC data. Current Interpretive Data was last revised on 2017. Imm gran pct 0.2 % [facility] Comment: Interpretive Data Percent cell count reference ranges are not reported, since discordance with absolute values may lead to misinterpretation of CBC data. Current Interpretive Data was last revised on 2017. Lymphocyte pct 40.8 % [facility] Comment: Interpretive Data Percent cell count reference ranges are not reported, since discordance with absolute values may lead to misinterpretation of CBC data. Current Interpretive Data was last revised on 2017. Monocyte pct 9.5 % [facility] Comment: Interpretive Data Percent cell count reference ranges are not reported, since discordance with absolute values may lead to misinterpretation of CBC data. Current Interpretive Data was last revised on 2017. Eosinophil pct 4.6 % [facility] Comment: Interpretive Data Percent cell count reference ranges are not reported, since discordance with absolute values may lead to misinterpretation of CBC data. Current Interpretive Data was last revised on 2017. Basophil pct 0.7 % [facility] Comment: Interpretive Data Percent cell count reference ranges are not reported, since discordance with absolute values may lead to misinterpretation of CBC data. Current Interpretive Data was last revised on 2017. Blood 05/12/2024 9:05 AM CDT 05/12/2024 12:46 PM CDT us Murray Bradshaw MD LAB BLOOD ORDERABLES Final R esult [facility] [address] [facility] Department [place] [address] * Urinalysis reflex to microscopic and culture Urine (05/12/2024 9:05 AM CDT) Color, ur Yellow Yellow Clarity, ur Clear Clear [facility] Specific gravity, ur 1.013 1.003 - 1.030 [facility] pH, urine 6.0 [facility] Comment: Interpretive Data U rine pH is affected by diet, medications, systemic acid-base disturbances, and renal tubular function. pH may affect urinary stone formation. For example, urine pH below 6.0 may help reduce the tendency for calcium phosphate stones and pH greater than 6.0 may reduce the tendency for uric acid stone formation. Source: [facility] Current Interpretive Data was last revised on 2017 Protein, ur ql Negative Negative [facility] Glucose, ur ql Negative Negative [facility] Ketones, ur Negative Negative [facility] Bilirubin, ur Negative Negative [facility] Blood, ur Negative Negative [facility] Urobilinogen, ur <2.0 <2.0 mg/dL [facility] Nitrite, ur Negative Negative [facility] Leukocyte esterase, ur Negative Negative [facility] UA reflex comment Reflex conditions for microscopic UA and culture not met. [facility] Urine 05/12/2024 9:05 AM CDT 05/12/2024 12:50 PM CDT Murray Bradshaw MD LAB MICROBIOLOGY - GENERAL O RDERABLES Final Result Performing Organization Address City/State/[facility] [[email or web address]] Co de Phone Number [place] [phone] [facility] Department [place] [address] * (ABNORMAL) CBC with auto differential (05/12/2024 9:05 AM CDT) WBC 6.0 3.8 - 9.9 K/cumm Hgb 11.2(L) 11.9 - 15.5 g/dL [facility] Hct 35.0(L) 35.6 - 45.5 % [facility] Plt 224 150 - 400 K/cumm [facility] MPV 10.8 9.1 - 12.3 fL [facility] RBC 3.68(L) 3.90 - 5.20 M/cumm [facility] MCV 95.1 81.3 - 96.4 fL [facility] MCH 30.4 27.1 - 33.3 pg [facility] MCHC 32.0(L) 32.3 - 35.7 g/dL [facility] RDW CV 12.3 11.1 - 14.9 % [facility] RDW SD 43.6 35.7 - 48.1 fL [facility] NRBC abs 0.00 0.00 - 0.01 K/cumm [facility] Blood 05/12/2024 9:05 AM CDT 05/12/2024 12:46 PM CDT Murray Bradshaw MD LAB BLOOD ORDERABLES Final R esult Performing Organization Address City/[facility] [[email or web address]] Co de Phone Number [id number] [place] [address] * Vitamin D 25 hydroxy (05/12/2024 9:05 AM CDT) Vitamin D 25-OH 34.0 30.0 - 80.0 ng/mL Blood 05/12/2024 9:05 AM CDT 05/12/2024 12:46 PM CDT Murray Bradshaw MD LAB BLOOD ORDERABLES Final R esult Performing Organization Address [facility] de Phone Number [address] [address] * Lipid panel (05/12/2024 9:05 AM CDT) Pathologist [facility] Cholesterol 156 30 - 199 mg/dL Comment: [...] on 2017. Triglycerides 72 <=149 mg/dL [facility] Comment: Interpretive Data Ages < [...] 2017. LDL, calculated 91 <=129 mg/dL [facility] Comment: Interpretive Data Ages < [...] NCEP Expert Panel. Circulation 2004;110:227 3. Erick Raymundo. LUCY Cardiol. 2020 June 12;5(5):540-548. doi: 10.1001/[email or web address].2020.0013 Current Interpretive Data was last revised on 2023. Non-HDL Cholesterol 105 mg/dL [facility] Comment: Interpretive Data Ages < [...] last revised on 2017. Chol/HDL ratio 3 [facility] Blood 05/12/2024 9:05 AM CDT 05/12/2024 12:46 PM CDT Murray Bradshaw MD LAB BLOOD ORDERABLES Final R esult [facility] [address] [facility] Department [place] [address] * (ABNORMAL) Comprehensive metabolic panel (05/12/2024 9:05 AM CDT) Sodium 136 135 - 145 mmol/L Potassium, pl 4.2 3.3 - 4.9 mmol/L [facility] Chloride 100 97 - 110 mmol/L [facility] CO2 24 22 - 32 mmol/L [facility] Anion gap 12 2 - 15 mmol/L [facility] BUN 15 6 - 25 mg/dL [facility] Creatinine 0.83 0.60 - 1.10 mg/dL [facility] Glucose 90 70 - 199 mg/dL [facility] Comment: Interpretive Data Fasting glucose >/= [...] 2022. Calcium 9.2 8.5 - 10.3 mg/dL [facility] Bilirubin, total 0.2 0.1 - 1.2 mg/dL [facility] Protein, pl 6.8 6.5 - 8.5 g/dL [facility] Albumin 4.2 3.5 - 5.0 g/dL [facility] Alk phos 62 40 - 130 Units/L [facility] ALT 89(H) 7 - 45 Units/L [facility] AST 49(H) 10 - 45 Units/L [facility] Blood 05/12/2024 9:05 AM CDT 05/12/2024 12:46 PM CDT Murray Bradshaw MD LAB BLOOD ORDERABLES Final R esult [facility] [address] [facility] Department [place] [address] * ECG 12 lead (05/09/2024 3:02 PM CDT) Historical Provider ECG ORDERABLES Final Res ult * Diagnostic Mammogram Bilateral W Gray (11/09/2023 4:12 PM CDT) Anatomical Region Laterality [...] Most Recently Relevant to Health Maintenance Insurance [facility] [employer] [employer] HMO/PPO Address: [address] [place] [address] [facility] [facility] [employer] H[employer]/PPO Address: [place] [address] [facility] [employer] H[employer]/PPO Address: [address] [place] [address] [facility] [employer] H[employer]/PPO Address: [facility] [address] [place] [address] Advance Directives For more information, please contact: [phone] * Full Code (Latest Code Status on File) Date Activated Date Inactivated Comments 05/05/2020 1:20 AM 05/06/2020 8:46 PM Care Teams Freight Caller Relationship Specialty Start Date End Date Murray Bradshaw MD [facility] [address] [address] PCP - General 07/06/10
--- OUTSIDE RECORDS SUMMARY | 2024-07-27 17:18 | XMS_ITS | Continuity of Care Document ---
Author Organization [employer] Address [address] [place] [address] Phone Care Team Providers Care Upholstery Covers Inspector Name Role Phone Santosh Buckley MD Unavailable Unavailable Advance Directives Directive Yes / No Effective Date File Name No Information Encounters Encounter Description Practice Location Reason(s) For Visit Diagnoses Date Provider Providers Copied on Encounter [facility], [address], [place], [place], [address], tel:[phone] [facility] Flank pain Marcio Frost. [address], [facility] [address], [place], [address], [place]. tel:[phone] [facility], [address], [place], [place], [address], tel:[phone] [facility] Asymptomatic microscopic hematuriaRenal painRetention of urine Noguera Christine. [address], [facility] [address], [place], [place], [address] , [place]. tel: [phone] Family History Family Member Type Diagnosis Age At Onset No Information Payers Payer name Insurance type Covered libertarian ID Authoriza tion(s) No Information Social History Type Description Quantity Date Captured Comments Sex Female Smoking Status No Information Chief Complaint And Reason For Visit No Information Reason For Referral Reason For Referral No Information Plan Of Treatment Date Type Action Status Future Order: Radiology Order CT abdomen and pelvis without contrast (60256), Sent on: Sent History Of Present Illness Encounter Date Complaint History Of Prese nt Illness No Information Functional Status Date Functional Assessmen t No Information Instructions Date Instruction Additional Infor mation No Information Assessments Type Assessment Date No Information Patient Care Teams Name Effective Dates (start - stop) Status Members No Information
--- OUTSIDE RECORDS SUMMARY | 2024-07-27 17:18 | XMS_ITS | Clinical Summary ---
Author Organization [facility] Address [address] [place] [address] Care Team Providers Care Sewer Connector Name Role Phone Murray Bradshaw MD Primary Care Provider [phone] Source Comments [facility],non-owned Affiliates and Associated Physician Practices is amultiple site organization consisting of ambulatory clinics and hospital sitesin [place], [place], [place] and [place]. This disclosure is being madepursuant to the Care Everywhere program and may not contain all information available regarding this patient. Last updated 17.[facility] Allergies Active Allergy Reactions Criticality Noted Date Comments Carbamazepine Itching,Swelling 03/02/2016 Codeine Nausea and/or Vomiting 11/16/2011 Labetalol Rash,Urticaria Medium 01/18/2011 Vimpat Other 12/03/2017 MADE HER PASS OUT, STATES MADE HER OFF BALANCE AND VERY ILL Oxycodone Itching 01/12/2016 Oxycodone-Acetaminophen Itching 12/14/2010 Medications * Be aware that medications may not be up to date on this document. Alwaysverify current medications with the patient. atenolol (TENORMIN) 50 MG tablet Take 1 (one) tablet by mouth 2 times daily Active furosemide (LASIX) 40 MG tabletIndicatio ns:Edema Take 1 (one) tablet by mouth once daily Reasons: Edema Active clonazePAM (KLONOPIN) 1 MG tablet 0.5 MG AT HS 0 6 Active triamcinolone acetonide (KENALOG) 0.1 % cream APPLY TO THE AFFECTED AREA TWICE DAILY( USE WITH NYSTATIN) 15 g 6 Active Additional Information Patient not taking.Reported on 09/28/2022 nystatin (MYCOSTATIN) 668751 UNIT/GM cream APPLY TO THE AFFECTED AREA TWICE DAILY( USE WITH TRIAMCINOLONE) 15 g 6 Active Additional Information Patient not taking.Reported on 09/28/2022 valsartan (DIOVAN) 80 MG tablet TK 1 T PO QD 2 6 Active lamoTRIgine XR 24hr (LAMICTAL XR) 300 MG tablet 200 mg 200 MG IN THE AM AND 200 MG AROUND 1700 8 Active ibuprofen (MOTRIN) 600 MG tablet Take 1 tablet by mouth every 6 hours as needed for Pain [address] (Depakote) 500 MG tablet Take 1 (one) tablet by mouth 1 Active phentermine (Adipex-P) 37.5 MG tablet 37.5 mg po in Am and 1/2 of 37.5 mg afternoon 2 Active divalproex ER 24hr (Depakote ER) 500 MG tablet 3 Active lamoTRIgine XR 24hr (LaMICtal XR) 200 MG tablet Take 2 (two) tablets by mouth 2 times daily 3 Active zolpidem (Ambien) 10 MG tablet Take 1 (one) tablet by mouth at bedtime 3 Active modafinil (Provigil) 100 MG tablet Take 1 (one) tablet by mouth once daily 3 Active atenolol (Tenormin) 50 MG tablet Take 1 (one) tablet by mouth two times daily at 4am and 4pm 60 tablet 11 3 Active darifenacin CR 24hr (Enablex) 7.5 MG tabletIndicatio ns:Overactive Bladder,Urinary Urgency Take 1 (one) tablet by mouth once daily Reasons: Overactive Bladder, Urinary Urgency 90 tablet 3 3 Active fluconazole (Diflucan) 150 MG tabletIndicatio ns:Any vaginitis Take 1 (one) tablet by mouth every 3 days 2 tablet 3 Active Active Problems Problem Noted Date Diagnosed Date S/P JER (total abdominal hysterectomy) 10/23/201 8 Overview (01/17/2018): Had bilateral salpingectomy. Conservation of the ovaries Menorrhagia with irregular cycle 11/21/2017 S/P endometrial ablation 11/21/2017 Dysmenorrhea 11/21/2017 Intramural leiomyoma of uterus 11/21/2017 Other pre-existing hypertension, antepartum 03/2010 History of partial seizures 12/14/2010 Overview (12/14/2010): Not sure, off medications for over one year MVP (mitral valve prolapse) 12/14/2010 History of gastroesophageal reflux (GERD) 2010 Resolved Problems Problem Noted Date Diagnosed Date Resolved Date history of Hypothyroidism co mplicating 12/14/2010 11/16/2011 Overview (12/14/2010): Last Low free T4, normal TSH; normal off meds when not Hx of preeclampsia, prior pr egnancy, currently 12/14/2010 11/16/2011 Anemia of mother in , antepartum 12/14/2010 11/16/2011 Previous delivery, antepartum condition or complication 12/14/2010 11/16/2011 Immunizations Immunization Administration Dates Next Due INFLUENZA VACCINE, QUADR. (F LUZONE; FLULAVAL; FLUARIX; AFLURIA QUADRIVALENT; 6MO+), 0.5 ML (IIV4) 12/06/2017 Family History Medical History Relation Name Comments Cancer - Prostate Father Cancer - Lung Maternal Grandfather Cancer - Stomach Maternal Grandfather Hypertension Maternal Grandmother Hypercholesterolemia Mother Hypertension Mother Rashes/Skin Problems Mother Cancer - Lung Paternal Grandmother Endometriosis Sister Relation Name Status Comments Brother Alive Father Alive Maternal Grandfather Alive Maternal Grandmother Mother Alive Paternal Grandmother Sister Social History Tobacco Use Types Packs/Day Years Used Date Smoking Tobacco: Former Smokeless Tobacco: Never Tobacco Cessation:Counseling Given: Not Answered Alcohol Use Standard Drinks/Week Comments Yes 0 (1 standard drink = 0.6 oz pure alcohol) rarely when not ; not at all when Comments No Sex and Gender Information Value Date Recorded Sex Assigned at Not on file Legal Sex Female 6:04 AM RADIATION PROTECTION SPECIALIST Gender Identity Not on file Sexual Orientation Not on file Occupation Industry Job Start Date Job End Date [employer] (Dr. Anthony [employer]) Not on file Not on file Not on file Last Filed Vital Signs Vital Sign Reading Time Taken Comments Blood Pressure 121/76 09/28/2022 11:03 AM CDT Pulse 90 12/06/2017 7:20 AM CDT Temperature 36.6 C (97.8 F) 12/06/2017 7:20 AM CDT Respiratory Rate 18 12/06/2017 7:20 AM CDT Oxygen Saturation 97% 12/06/2017 7:20 AM CDT Inhaled Oxygen Concentration - - Weight 65.7 kg (144 lb 12.8 oz) 023 11:03 AM CDT Height 157.5 cm (5' 2) 09/28/2022 11:0 3 AM CDT Body Mass Index 26.48 09/28/2022 11:03 AM CDT Plan of Treatment Health Maintenance Due Date Last Done Comments COLOGUARD (AGES 45-75) - COLON CA SCREENING 1978 COLON MONITORING 1978 COLONOSCOPY - COLON CA SCREENING 1978 CT COLONOGRAPHY - COLON CA SCREENING 1978 Colorectal Cancer Screening 1978 FIT - COLON CA SCREENING 1978 FLEX SIG - COLON CA SCREENING 1978 HIV SCREENING 1993 HEPATITIS C SCREENING 07/14/1996 DTAP/TDAP/TD VACCINES (1 - Tdap) 1997 HEPATITIS B VACCINE (1 of 3 - 19+ 3-dose series) 1997 LIPID TESTING 01/29/2019 01/29/2014 SCREENING FOR DIABETES 11/14/2021 8, 01/29/2014, 01/29/2014, Additional history exists PAP with HPV 10/19/2022 10/19/2017, 12/04/2014 COVID-19 VACCINE ( season) 2023 07/31/2020, 07/03/2020 DEPRESSION SCREENING 02/13/2024 MAMMOGRAM 07/31/2024 07/31/2022, 07/0 10/2021, 09/26/2019, Additional history exists INFLUENZA VACCINE (Season Ended) 2024 12/06/2019, 12/06/2017 ZOSTER VACCINE (1 of 2) 2028 HIB VACCINE Aged Out No longer eligi ble based on patient's age to complete this topic HPV VACCINE Aged Out No longer eligi ble based on patient's age to complete this topic MENINGOCOCCAL (Group B) VACCINE SHARED DECISION-MAKING Aged Out No longer eligible based on patient's age to complete this topic MENINGOCOCCAL GROUPS A/C/Y/W VACCINE Aged Out No longer eligible based on patient's age to complete this topic PNEUMOCOCCAL VACCINE Aged Out No long er eligible based on patient's age to complete this topic Procedures Procedure Name Priority Date/Time Associated Diagnosis Comments MAMMO BILAT DIAGNOSTIC W TAMARA Routine 07/31/2022 10:07 AM CDT Breast pain, left BASIC METABOLIC PANEL (CALCIUM TOTAL) STAT 12/04/2017 8:25 AM CDT Menorrhagia with irregular cycle PAP IG LB +HPV APTIMA REFLEX 16,18/45 Routine 10/19/2017 3:45 PM CDT Well woman exam Screening for human papillomavirus LIPID PROFILE Routine 01/29/2014 9:30 AM RADIATION PROTECTION SPECIALIST History of partial seizures from Last 3 Months or Most Recently Relevant to Health Maintenance Results * MAMMO BILAT DIAGNOSTIC W TAMARA (07/31/2022 10:07 AM CDT) Anatomical Region Laterality Modality Breast Bilateral Mammography 07/31/2022 10:3 6 AM CDT Impressions 07/31/2022 10:47 AM CDT : 1. There is no suspicious finding in either breast. There are stable benign post biopsy findings in the left breast. 2. Annual screening mammography is recommended in one year. 3. The exam results and management recommendations were discussed with the patient by Dr. Hanna at the time of study completion. OVERALL FINAL ASSESSMENT: BI-RADS Category 2: Benign. > Interpreting Provider: Jen Hanna MD on 07/31/2022 10:47 AM Narrative 07/31/2022 10:47 AM CDT EXAMINATION: BILATERAL DIGITAL DIAGNOSTIC MAMMOGRAM AND BILATERAL BREAST TOMOSYNTHESIS HISTORY: 42-year-old asymptomatic woman who underwent left breast stereotactic core needle biopsy on 09/14/2021 with a benign concordant result. Surveillance was recommended. The patient is currently due for bilateral annual imaging. COMPARISON: 03/20/2022, 09/14/2021, 09/02/2021, 08/20/2021, 09/26/2019, 10/24/2017 TECHNIQUE: BILATERAL full field digital breast tomosynthesis examination was performed with synthetic 2D images and computer aided detection (CAD). 7 projections total. BREAST PARENCHYMAL COMPOSITION: There are scattered areas of fibroglandular density. MAMMOGRAM FINDINGS: There is no suspicious finding in either breast. There is a stable focal asymmetry in the LEFT breast upper outer quadrant. A biopsy clip is present within the asymmetry, consistent with prior stereotactic/tomosynthesis guided core needle biopsy. The asymmetry appears less conspicuous in effacement on orthogonal spot compression views. There are no suspicious microcalcifications. There is no architectural distortion. Overall, there has been no significant interval change. us Rama Gant DO MAMMO ORDERABLES Final Result * (ABNORMAL) BASIC METABOLIC PANEL (CALCIUM TOTAL) (12/04/2017 8:25 AM CDT) Glucose 84 74 - 106 mg/dL 12/04/2017 8:46 AM CDT [facility] Sodium 136 136 - 145 mmol/L 12/04/2017 8:46 AM CDT [facility] Potassium 3.1(L) 3.5 - 5.1 mmol/L 12/04/2017 8:46 AM CDT [facility] Chloride 100 98 - 107 mmol/L 12/04/2017 8:46 AM CDT [facility] CO2 32(H) 22 - 31 mmol/L 12/04/2017 8:46 AM CDT [facility] Calcium 8.4(L) 8.5 - 10.1 mg/dL 12/04/2017 8:46 AM CDT [facility] Anion Gap 4(L) 8 - 16 mmol/L 12/04/2017 8:46 AM CDT [facility] BUN 8 7 - 21 mg/dL 12/04/2017 8:46 AM CDT [facility] Creatinine 0.89 0.50 - 1.30 mg/dL 12/04/2017 8:46 AM CDT [facility] eGFR by MDRD >60 >60 mL/min/1.7 3m2 12/04/2017 8:46 AM CDT [facility] eGFR by MDRD >60 >60 mL/min/1.7 3m2 12/04/2017 8:46 AM CDT [facility] Blood BLOOD SPECIMEN / Unknown Venipuncture / Unknown 12/04/2017 8:25 AM CDT 12/04/2017 8:28 AM CDT us Ashleigh Burdick DO LAB - CHEMISTRY ORDERABLES Final Result [facility] [address] [place] [address] * PAP IG LB +HPV APTIMA REFLEX 16,18/45 (10/19/2017 3:45 PM CDT) Diagnosis [facility] ACCOUNT BILL Comment:NEGATIVE FOR INTRAEP ITHELIAL LESION AND MALIGNANCY. Specimen Adequacy [facility] ACCOUNT BILL Comment: Satisfactory for evaluation. Endocervical and/or squamous metaplastic cells (endocervical component) are present. Clinician Provided ICD10 [facility] ACCOUNT BILL Comment: Z01.419 Z11.51 N92.1 N60.11 N60.12 Performed by [facility] ACCOUNT BILL Comment:Genny Em, Drawing Supervisor (ASCP) Comment . [facility] ACCOUNT BILL Note [facility] ACCOUNT BILL Comment: The Pap smear is a screening test designed to aid in the detection of premalignant and malignant conditions of the uterine cervix. It is not a diagnostic procedure and should not be used as the sole means of detecting cervical cancer. Both false-positive and false-negative reports do occur. . IGLBP CPT Code Automation [facility] ACCOUNT BILL Comment: This liquid based ThinPrep(R) pap test was screened with the use of an image guided system. Human papillomavirus Aptima Negative Negative [facility] ACCOUNT BILL Comment: This test detects fourteen high-risk HPV types (16/18/31/33/35/39/45/ 51/52/56/58/59/66/68) without differentiation. PART OF UTERINE CERVIX / Unknown 10/19/2017 3:45 PM CDT 10/19/2017 Narrative [facility] ACCOUNT BILL - 10/24/2017 9:07 PM CDT Source.............Cervix;Endocervix LMP / Prev Treat...GHG=[id number];None No. of containers..01 ThinPrep Vial Resulting Agency Comment [facility] And[facility] [place] Toney [place] [id number] us Ashleigh Burdick DO LAB - PATHOLOGY/CYTOLOGY ORDERAB LES Final Result [facility] ACCOUNT BILL [address] [place] [address] * (ABNORMAL) LIPID PROFILE (01/29/2014 9:30 AM RADIATION PROTECTION SPECIALIST) Cholesterol 204(H) <200 mg/dL 01/29/2014 10:07 AM RADIATION PROTECTION SPECIALIST [facility] Triglycerides 79 <150 mg/dL 01/29/2014 10:07 AM [facility] HDL Cholesterol 70 >40 mg/dL 01/29/2014 10:07 AM RADIATION PROTECTION SPECIALIST [facility] LDL Calculated 118 <130 mg/dL 01/29/2014 10:07 AM RADIATION PROTECTION SPECIALIST [facility] VLDL Calculated 16 <=30 mg/dL 01/29/2014 10:07 AM [facility] Chol HDL Ratio 2.9 <4.5 01/29/2014 10:07 AM [facility] Blood BLOOD SPECIMEN / Unknown Lab Venipuncture / Unknown 01/29/2014 9:30 AM RADIATION PROTECTION SPECIALIST 01/29/2014 9:36 AM RADIATION PROTECTION SPECIALIST us Duran Rosenbaum MD LAB - CHEMISTRY ORDERABLES Fi nal Result Performing Organization Address City/[facility] Co de Phone Number [facility] [address] [place] [phone] from Last 3 Months or Most Recently Relevant to Health Maintenance Insurance [facility] Advance Directives * Full Code (Latest Code Status on File) Date Activated Date Inactivated Comments 12/04/2017 1:52 PM 12/06/2017 10:38 AM * Full Code Date Activated Date Inactivated Comments 12/04/2017 1:52 PM 12/04/2017 1:52 PM Care Teams Sewer Connector Relationship Specialty Start Date End Date Murray Bradshaw MD [address] [place] [address] DR Pond [address] [address] PCP - General 08/08/10
--- OUTSIDE RECORDS SUMMARY | 2024-07-27 17:18 | XMS_ITS | Encounter Summary ---
Author Organization [facility] Address [address] [place] [address] Care Team Providers Care Extractor Plant Operator Name Role Phone Murray Bradshaw MD Primary Care Provider [phone] Reason for Visit * Diagnostic Imaging (Routine) - Closed Specialty Diagnoses / Procedures Referred By Emmy t Referred To Contact Procedures Breast Imaging Screening Outside Reference Transcribed Order, Provider Referral ID Status Reason Start Date Expiration Date Visits Re quested Visits Authorized [id number] Closed 04/10/2023 05/09/2024 1 1 Encounter Details Date Type Department Care Team (Late st Contact Info) Description 09/26/2019 Hospital Encounter [facility] [address] [place] [id number] Social History Tobacco Use Types Packs/Day Years [...] on file Legal Sex Female 11:32 PM ROLL BUILDER Gender Identity Not on file Sexual Orientation Not on file documented as of this encounter Functional Status documented as of this encounter Plan of Treatment Not on file documented as of this encounter Procedures Procedure Name Priority Date/Time Associated Diagnosis Comments BREAST IMAGING MG SCREENING OUTSIDE REFERENCE Routine 09/26/2019 12:00 AM CDT documented in this encounter Results * Breast Imaging Screening Outside Reference (09/26/2019 12:00 AM CDT) Impressions [facility] - 04/10/2023 9:52 AM ROLL BUILDER These images are for Reference purposes only and have not been reviewed by [facility]. There will be no report generated by a [facility] Radiologist. Narrative [facility] - 04/10/2023 9:52 AM ROLL BUILDER EXAMINATION: Images For Reference Purposes Only us Provider Transcribed Order IMG MAMMO PROCEDURES Final Result [facility] documented in this encounter Visit Diagnoses Not on filedocumented in this encounter Additional Health Concerns Infection Onset Date Last Indicated Resolved Time COVID: Suspected 12/12/2019 12/12/2019 12/13/2019 7:55 AM CDT Respiratory Infection (CHRISTELLE), contact + droplet Comment:Automatically added due to negative COVID-19 result. 12/13/2019 12/13/2019 12/27/2019 3:0 5 AM ROLL BUILDER COVID: Suspected 06/28/2021 06/28/2021 06/28/2021 5:47 PM CDT COVID19 06/28/2021 06/28/2021 07/08/2021 3:05 AM CDT COVID: Recovered Comment:Added based on recent COVID infection. 07/08/2021 07/08/2021 11/05/2021 3:05 AM C DT COVID: Suspected 12/29/2022 12/29/2022 12/29/2022 4:26 PM ROLL BUILDER COVID: Suspected 04/12/2023 04/12/2023 04/12/2023 3:08 PM ROLL BUILDER documented as of this encounter Care Teams Extractor Plant Operator Relationship Specialty Start Date End Date Murray Bradshaw MD [address] [place] [address] DR [address] [address] PCP - General 07/06/10 documented as of this encounter
--- OUTSIDE RECORDS SUMMARY | 2024-07-27 17:20 | XMS_ITS | Continuity of Care Document ---
Author Organization [facility] Address [address] [place] [address] [place] [address] Phone Care Team Providers Care Receiving Inspector Name Role Phone Samuel OD, Keyshawn Unavailable Unavailable Procedures Procedure Date Eye Exam & Treatment Refraction Contact Lens Hydrophilic, Spherical [facility] Exam & Treatment Refraction CL Replacement - Vist[place] Disp W/BW Soft [facility] CL Replacement - Vistakon Disp W/BW Soft [facility] Eye Exam & Treatment Advance Directives Directive Yes / No Effective Date File Name No Information Encounters Encounter Description Practice Location Reason(s) For Visit Diagnoses Date Provider Providers Copied on Encounter [facility], [address] [place] [address] [address], [place], [place], [id number], [place] tel:[phone] [facility] No Information Oct- 1-201 0 Samuel OD Keyshawn. [address] [facility] [place] , [address], [place], [address], [place]. tel:[phone] [facility], [address] [place] [address] [address], [place], [place], [id number], [place] tel:[phone] [facility] No Information 5-200 9 Samuel OD Keyshawn. [address] [facility] [address], [address], [place], [address], [place]. tel:[phone] [facility], [address] [place] [address] [address], [place], [place], [id number], tel:[phone] [facility] [place] No Information 1-200 9 Samuel OD Keyshawn. [address] [place], [place] [address] , [address], [place], [place], [facility], . tel:[phone] [facility], [address] [place] [address] [address], [place], [place], [id number], tel:[phone] [facility] No Information 7-200 9 Samuel OD Keyshawn. [facility] , [address], [place], [place], [facility], [place]. tel:[phone] [facility], [address] [place] [address] [address], [place], [place], [id number], tel:[phone] [facility] [place] No Information 1-200 8 Samuel OD Keyshawn. [address] [place], [place] [address] , [address], [place], [place], [facility], . tel:[phone] [facility], [address] [place] [address] [address], [place], [place], [id number], tel:[phone] [facility] [place] No Information 0 8-200 8 Samuel OD Keyshawn. [address] [place], [place] [address] , [address], [place], [place], [facility], . tel:[phone] Family History Family Member Type Diagnosis Age At Onset No Information Payers Payer name Insurance type Covered green party ID Authoriza tion(s) No Information Social [...]
--- OUTSIDE RECORDS SUMMARY | 2024-07-27 17:20 | XMS_ITS | Continuity of Care Document ---
Author Organization [facility] Address [address] [place] [address] Phone Care Team Providers Care Utility Technician Name Role Phone Santosh Buckley MD Unavailable Unavailable Advance Directives Directive Yes / No Effective Date File Name No Information Encounters Encounter Description Practice Location Reason(s) For Visit Diagnoses Date Provider Providers Copied on Encounter [facility], [address], [place], [place], [id number], tel:[phone] [facility] Flank pain Marcio Frost. [address], [facility] [address], [place], [address], [place]. tel:[phone] [facility], [address], [place], [place], [address], tel:[phone] [facility] Asymptomatic microscopic hematuriaRenal painRetention of urine Noguera Christine. [address], [facility] [address], [place], [place], [address] , [place]. tel: [phone] Family History Family Member Type Diagnosis Age At Onset No Information Payers Payer name Insurance type Covered democrat ID Authoriza tion(s) No Information Social History Type Description Quantity Date Captured Comments Sex Female Smoking Status No Information Chief Complaint And Reason For Visit No Information Reason For Referral Reason For Referral No Information Plan Of Treatment Date Type Action Status Future Order: Radiology Order CT abdomen and pelvis without contrast (44724), Sent on: Sent History Of Present Illness Encounter Date Complaint History Of Prese nt Illness No Information Functional Status Date Functional Assessmen t No Information Instructions Date Instruction Additional Infor mation No Information Assessments Type Assessment Date No Information Patient Care Teams Name Effective Dates (start - stop) Status Members No Information
[2024-07-27 17:22] VITALS: BP 114/68; PULSE 79; RESP 18; TEMP 36.7; O2SAT 100
== END 2024-07-27 17:45 | disposition home or self-care (01) ==
PROVIDERS: Emergency Provider Nurse Practitioner
DX: S05.02XA Injury of conjunctiva and corneal abrasion without foreign body, left eye, initial encounter (principal); W22.8XXA Striking against or struck by other objects, initial encounter; H11.32 Conjunctival hemorrhage, left eye; I10 Essential (primary) hypertension
CPT/HCPCS: 99213; A9270; G0463